=== PATIENT | female | born 1985 | race Caucasian/White ===

== ENCOUNTER 2016-09-02 00:21 | Emergency (ER) | payer OTHER ==
[~2016-09-02] VITALS: Ht 157.5 cm; Wt 131.1 kg
[2016-09-02 00:31] VITALS: BP 120/73
--- NOTE | 2016-09-02 03:20 | NUR ---
PT TAKEN TO BED 6
--- NOTE | 2016-09-02 03:58 | NUR ---
31Y F CAME TO ER C/O OF PAIN TO RT LEG. PT DEVELOP CELLULITIS DUE TO LYMPHEDEMA. V/S WNL.
[2016-09-02] MEDS ORDERED: NACL 0.9% 1,000 ML IV ONE (04:05)
[2016-09-02] MEDS ORDERED: MORPHINE SULFATE 2 MG/ML SYR IVP ONE (04:05)
[2016-09-02] MEDS ORDERED: FUROSEMIDE 40 MG/4 ML VIAL IVP ONE (04:05)
[2016-09-02] MEDS ORDERED: VANCOMYCIN 1,000 MG in DEXTROSE 5% 250 ML IV ONE (04:05)
[2016-09-02] MEDS ORDERED: VANCOMYCIN 1,000 MG VIAL ONE (04:14)
[2016-09-02 05:05] LABS: BASOPHILS # (AUTO) 0.1 K/uL (0.00-0.22); BASOPHILS % (AUTO) 1.3 % (0.0-2.0); EOSINOPHILS # (AUTO) 0.3 K/uL (0-0.4); EOSINOPHILS % (AUTO) 3.5 % (0.0-4.0); HEMATOCRIT 30.1 % (36-48); HEMOGLOBIN 9.6 g/dL (12.0-16.0); LYMPHOCYTES # (AUTO) 1.9 K/uL (2.5-16.5); LYMPHOCYTES % (AUTO) 25.3 % (20.5-51.1); MEAN CORPUSCULAR HEMOGLOBIN 28 pg (27-31); MEAN CORPUSCULAR HGB CONC 32 g/dL (33-37); MEAN CORPUSCULAR VOLUME 87 fL (80-94); MONOCYTES # (AUTO) 0.6 K/uL (0.8-1.0); MONOCYTES % (AUTO) 8.2 % (1.7-9.3); NEUTROPHILS # (AUTO) 4.8 K/uL (1.8-7.7); NEUTROPHILS % (AUTO) 61.7 % (42.2-75.2); PLATELET COUNT (AUTO) 336 K/uL (140-450); RED BLOOD CELL COUNT(AUTO) 3.47 MIL/uL (4.20-5.40); RED CELL DISTRIBUTION WIDTH 15.6 % (11.6-13.7); WHITE BLOOD COUNT (AUTO) 7.7 K/uL (4.8-10.8)
[2016-09-02 05:14] LABS: ANION GAP 11.7 (8-16); CALCIUM 7.9 mg/dL (8.5-10.1); CARBON DIOXIDE 29.3 mmol/L (21-32); CREATININE 0.7 mg/dL (0.6-1.3)
[2016-09-02 05:17] LABS: INR 1.1 (0.8-1.2); PARTIAL THROMBOPLASTIN TIME 30.2 secs (22-35.6)
[2016-09-02 05:19] LABS: ALBUMIN 3.2 g/dL (3.4-5.0); TOTAL BILIRUBIN 0.4 mg/dL (0.0-1.0); TOTAL PROTEIN, SERUM 7.4 g/dL (6.4-8.2)
[2016-09-02 06:05] VITALS: BP 125/70
--- NOTE | 2016-09-02 06:05 | NUR ---
Patient discharged with v/s stable. Written and verbal after care instructions given and explained BY DR LOCKHART. Patient alert, oriented and verbalized understanding of instructions. Ambulatory with steady gait. All questions addressed prior to discharge. ID band removed. Patient advised to follow up with PMD. Rx of BACTRIM, POTASSIUM CHLORIDE, NORCO, LASIX given. Patient educated on indication of medication including possible reaction and side effects. Opportunity to ask questions provided and answered.
== END 2016-09-02 06:05 | disposition home or self-care (01) ==
LOC: MED 00:21
DX: L03.115 Cellulitis of right lower limb (principal); I89.0 Lymphedema, not elsewhere classified; Z88.6 Allergy status to analgesic agent
CPT/HCPCS: 36415; 80053; 85025; 85610; 85730; 96365; 96375; 99284; J1940; J2270; J3370; J7060

== ENCOUNTER 2016-11-07 00:10 | Emergency (ER) | payer OTHER ==
[~2016-11-07] VITALS: Ht 157.5 cm; Wt 144.4 kg
[2016-11-07 00:35] VITALS: BP 102/57
--- NOTE | 2016-11-07 02:22 | NUR ---
PT TAKEN TO BED 6
--- NOTE | 2016-11-07 02:39 | NUR ---
31 Y/O F W/C/O PAIN TO LOWER LEGS R/T LYMPHOEDEMA. MED HX LYMPHOEDEMA.NO S/S OF DISTRESS NOTED AT THE MOMENT.
--- NOTE | 2016-11-07 02:39 | NUR ---
Dr. Negrete evaluating patient at bedside.
[2016-11-07] MEDS ORDERED: MORPHINE SULFATE 4 MG/ML SYR IM ONE (02:45)
--- NOTE | 2016-11-07 03:10 | NUR ---
PT RESTING IN BED, AWATING FOR RESULTS. NO S/S OF DISTRESS NOTED AT THE MOMENT.
[2016-11-07 04:09] VITALS: BP 98/62
--- NOTE | 2016-11-07 04:09 | NUR ---
Patient discharged with v/s stable. Written and verbal after care instructions given and explained. Patient alert, oriented and verbalized understanding of instructions. Ambulatory with steady gait. All questions addressed prior to discharge. ID band removed. Patient advised to follow up with PMD TOMORROW OR RETURN TO ER IF CONDITION WORSENS. Rx of NORCO given. Patient educated on indication of medication including possible reaction and side effects. Opportunity to ask questions provided and answered.
== END 2016-11-07 04:09 | disposition home or self-care (01) ==
LOC: MED 00:10
DX: M25.572 Pain in left ankle and joints of left foot (principal); I89.0 Lymphedema, not elsewhere classified; Z88.3 Allergy status to other anti-infective agents
CPT/HCPCS: 73610; 81002; 81025; 96372; 99284; J2270; Q0092

== ENCOUNTER 2020-01-01 15:50 | Emergency (ER) | payer OTHER ==
[~2020-01-01] VITALS: Ht 170.2 cm; Wt 95.3 kg
[2020-01-01 15:56] VITALS: BP 124/56
[2020-01-01 16:25] VITALS: BP 124/56
== END 2020-01-01 16:25 | disposition home or self-care (01) ==
LOC: MED 15:50
DX: R50.9 Fever, unspecified (principal); R43.8 Other disturbances of smell and taste; Z88.6 Allergy status to analgesic agent; Z88.8 Allergy status to other drugs, medicaments and biological substances; Z20.828 Contact with and (suspected) exposure to other viral communicable diseases
CPT/HCPCS: 99283; U0003